=== PATIENT | female | born 2000 | race Caucasian/White ===

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

== ENCOUNTER 2020-03-14 00:22 | Emergency (ER) | payer MEDICAID, OTHER ==
[~2020-03-14] VITALS: Ht 157.5 cm; Wt 57.3 kg
[~2020-03-14 00:22] MED LIST changes: -ACET-2116 PO; +ALBU8HFA IH
[2020-03-14 04:00] VITALS: BP 109/66
[2020-03-14] MEDS ORDERED: NITROFURANTOIN/NITROFURAN MAC 100 MG CAPSULE [MACROBID] PO ONE (04:00)
[2020-03-14] MEDS ORDERED: PHENAZOPYRIDINE HCL 100 MG TABLET PO ONE (04:00)
== END 2020-03-14 04:25 | disposition home or self-care (01) ==
LOC: EMS 00:22
DX: N39.0 Urinary tract infection, site not specified (principal); J45.909 Unspecified asthma, uncomplicated

== ENCOUNTER 2020-10-03 09:55 | Emergency (ER) | payer OTHER ==
[~2020-10-03] VITALS: Ht 162.6 cm; Wt 54.5 kg
[2020-10-03 10:45] VITALS: BP 127/86
== END 2020-10-03 11:09 | disposition home or self-care (01) ==
LOC: EMS 09:55
DX: N39.0 Urinary tract infection, site not specified (principal); J45.909 Unspecified asthma, uncomplicated
CPT/HCPCS: 99283

== ENCOUNTER 2021-01-29 21:32 | Emergency (ER) | payer OTHER ==
[~2021-01-29] VITALS: Ht 157.5 cm; Wt 59.1 kg
[2021-01-29 21:49] VITALS: BP 139/99
[2021-01-29 22:43] LABS: APPEARANCE,URINE CLEAR (CLEAR); BILIRUBIN,URINE NEGATIVE (NEGATIVE); GLUCOSE, URINE (UA) NEGATIVE (NEGATIVE); KETONES,URINE NEGATIVE (NEGATIVE); LEUKOCYTE ESTERASE ,URINE MODERATE (NEGATIVE); NITRATE,URINE NEGATIVE (NEGATIVE); OCCULT BLOOD,URINE TRACE (NEGATIVE); PH,URINE 7.5 (5.0-8.0); PROTEIN,URINE NEGATIVE (NEGATIVE); UROBILINOGEN,URINE 0.2 mg/dL (<=1.0)
[2021-01-29] MEDS ORDERED: NITROFURANTOIN/NITROFURAN MAC 100 MG CAPSULE [MACROBID] PO ONE (22:45)
[2021-01-29 22:49] LABS: BACTERIA,URINE Few /HPF (None Seen); SQUAMOUS EPITHELIAL CELL,UR Few /LPF (None Seen)
== END 2021-01-29 22:52 | disposition home or self-care (01) ==
LOC: EMS 21:36
DX: N39.0 Urinary tract infection, site not specified (principal); J45.909 Unspecified asthma, uncomplicated
CPT/HCPCS: 81001; 84703; 87077; 87086; 87186; 99283